=== PATIENT | female | born 1950 | race Hispanic/Latino ===

== ENCOUNTER 2023-01-21 06:16 | Observation (INO) | payer OTHER, MEDICARE ==
[2023-01-16 15:53] LABS: BASOPHILS # (AUTO) 0.07 K/uL (0.00-0.20); EOSINOPHILS # (AUTO) 0.16 K/uL (0.00-0.70); EOSINOPHILS % (AUTO) 2.3 % (0.0-8.0); HEMATOCRIT 32.6 % (36-48); IMMATURE GRANULOCYTE ABSOLUTE 0.03 K/uL (0-1); LYMPHOCYTES % (AUTO) 28.7 % (21.0-51.0); MEAN CORPUSCULAR HEMOGLOBIN 29.8 pg (27.0-33.0); MEAN CORPUSCULAR HGB CONC 33.1 g/dL (32.0-36.0); MEAN CORPUSCULAR VOLUME 90.1 fL (79-99); MONOCYTES # (AUTO) 0.6 K/uL (0.1-1.0); MONOCYTES % (AUTO) 7.7 % (3.0-13.0); NEUTROPHILS # (AUTO) 4.3 K/uL (1.8-7.7); NEUTROPHILS % (AUTO) 59.9 % (40.0-77.0); PLATELET COUNT (AUTO) 176 K/uL (130-400); RED BLOOD CELL COUNT(AUTO) 3.62 MIL/uL (4.00-5.50); RED CELL DISTRIBUTION WIDTH 12.2 % (11.0-15.5); WHITE BLOOD COUNT (AUTO) 7.1 K/uL (4.8-10.8)
[2023-01-16 15:58] LABS: APPEARANCE,URINE CLEAR (CLEAR); BILIRUBIN,URINE NEGATIVE (NEGATIVE); COLOR,URINE LIGHT-YELLOW (YELLOW); GLUCOSE, URINE (UA) >=1000 mg/dL (NEGATIVE); KETONES,URINE NEGATIVE (NEGATIVE); LEUKOCYTE ESTERASE ,URINE NEGATIVE Leu/uL (NEGATIVE); NITRATE,URINE NEGATIVE (NEGATIVE); PROTEIN,URINE NEGATIVE (NEGATIVE); UROBILINOGEN,URINE 0.2 mg/dL (0.2-1.0)
[2023-01-16 16:02] LABS: ADD UA MICROSCOPIC YES
[2023-01-16 16:04] LABS: MUCUS,URINE RARE LPF (None Seen); SQUAMOUS EPITHELIAL CELL,UR RARE /HPF (0-2); WBC,URINE 0-1 /HPF (0-1)
[2023-01-16 16:11] LABS: INR < 0.93 (0.85-1.15); PROTHROMBIN TIME 10.7 SEC (9.6-11.6)
[2023-01-16 16:12] LABS: ALBUMIN 3.6 g/dL (3.5-5.0); BILIRUBIN,TOTAL 0.3 mg/dL (0.2-1.0); CREATININE 0.7 mg/dL (0.5-1.5); POTASSIUM 4.4 mmol/L (3.5-5.1); TOTAL PROTEIN, SERUM 7.8 g/dL (6.0-8.3)
[2023-01-16 16:13] LABS: PARTIAL THROMBOPLASTIN TIME 23.9 SEC (26.3-35.5)
[2023-01-16 16:38] VITALS: BP 141/71; PULSE 87; RESP 16
[2023-01-21] VITALS (21 sets, daily range): BP systolic 107–166; BP diastolic 43–79; PULSE 89–111; RESP 15–21; O2SAT 100
[~2023-01-21] VITALS: Ht 149.9 cm; Wt 48.7 kg
[~2023-01-21 06:16] MED LIST: ALEN70TA80 PO; CALC-1009 PO; FERR-82 PO; GLYB5TAB8 PO; LISI2.5T13 PO; MELA1TAB16 PO; MELO-106 PO; OMEP40CA21 PO; ROSU5TAB12 PO
[2023-01-21] MEDS ORDERED: CEFAZOLIN SODIUM 1 GM VIAL ONE ×4 (07:17→11:14)
[2023-01-21] MEDS ORDERED: BUPIVACAINE/PF 0.5% 30ML VIAL ONE (07:17)
[2023-01-21] MEDS ORDERED: KETOROLAC 30MG VIAL (30MG/ML) ONE (07:18)
[2023-01-21] MEDS ORDERED: GENTAMICIN SULFATE 80 MG/2 ML VIAL ONE ×3 (07:18→11:16)
[2023-01-21] MEDS ORDERED: LIDOCAINE 1%-EPI 1:100,000 20 ML VIAL ONE (07:18)
[2023-01-21] MEDS ORDERED: METHYLENE BLUE 5 MG/ML AMP ONE (07:18)
[2023-01-21] MEDS ORDERED: HYDROMORPHONE 1 MG INJ ONE (07:21)
[2023-01-21] MEDS ORDERED: FAMOTIDINE 20MG VIAL IV ONE (07:21)
[2023-01-21] MEDS ORDERED: FENTANYL CITRATE PF 50 MCG/1 ML 2ML VIAL ONE ×2 (07:26→09:33)
[2023-01-21] MEDS ORDERED: GLYCOPYRROLATE 1 MG/5 ML SYRINGE ONE (07:26)
[2023-01-21] MEDS ORDERED: SUCCINYLCHOLINE CHLORIDE 20 MG/ML 10 ML VIAL ONE (07:26)
[2023-01-21] MEDS ORDERED: ROCURONIUM 10MG/1ML SYR 10 MG/ML ML ONE (07:26)
[2023-01-21] MEDS ORDERED: PROPOFOL 10 MG/ML 20ML VIAL IV ONE (07:26)
[2023-01-21] MEDS ORDERED: LIDOCAINE PF 100MG/5ML (2%) SYRINGE 5ML ONE (07:26)
[2023-01-21] MEDS ORDERED: CEFAZOLIN SODIUM 2 GM VIAL ONE (07:52)
[2023-01-21] MEDS ORDERED: 0.9%NACL 1000ML 1,000 ML IV ONE (07:52)
[2023-01-21] MEDS ORDERED: SCOPOLAMINE HYDROBROMIDE 1 EACH ADH..PATCH TD ONE (08:04)
[2023-01-21] MEDS ORDERED: MIDAZOLAM HCL 1 MG/ML 2ML VIAL ONE (08:26)
[2023-01-21] MEDS ORDERED: TRULICITY SQ (08:27)
[2023-01-21] MEDS ORDERED: GENTAMICIN SULFATE 80 MG/2 ML VIAL IM ONE (08:33)
[2023-01-21] MEDS ORDERED: CEFAZOLIN SODIUM 2 GM VIAL IVPB ONE (08:36)
[2023-01-21] MEDS ORDERED: METHYLENE BLUE 5 MG/ML AMP IJ ONE (08:40)
[2023-01-21] MEDS ORDERED: ONDANSETRON 4MG INJ ONE (08:59)
[2023-01-21] MEDS ORDERED: POLYMYXIN B SULFATE IRRIG SCH (09:30)
[2023-01-21] MEDS ORDERED: NACL 0.9% IRRIG SCH (09:30)
[2023-01-21] MEDS ORDERED: EPHEDRINE SULFATE 50 MG/ML AMPULE ONE (10:15)
[2023-01-21] MEDS ORDERED: DiphenhydrAMINE HCL 50 MG/ML VIAL ONE (12:22)
[2023-01-21] MEDS ORDERED: MEPERIDINE-PF 25 MG/ML SYG ONE (13:01)
[2023-01-21] MEDS: IBUPROFEN 800 MG TAB PO SCH ×2 (13:30→20:55)
[2023-01-21] MEDS ORDERED: ONDANSETRON 4MG INJ IVP PRN (13:30)
[2023-01-21] MEDS: TRAMADOL HCL 50 MG TABLET PO SCH ×3 (13:30→19:30)
[2023-01-21] MEDS: D5W-1/2 NS/20MEQ KCL 1,000 ML IV SCH (16:13)
[2023-01-21] MEDS ORDERED: (Melatonin/Pyridoxine (Melatonin 5 mg Tablet) 1 EACH) PO PRN (22:30)
[2023-01-21] MEDS ORDERED: (Alendronate Sodium 70 MG) PO SCH (22:30)
[2023-01-22] VITALS (7 sets, daily range): BP systolic 104–155; BP diastolic 51–97; PULSE 85–95; RESP 16–17; O2SAT 95–97
[2023-01-22] MEDS: TRAMADOL HCL 50 MG TABLET PO SCH ×4 (01:07→18:51)
[2023-01-22] MEDS: D5W-1/2 NS/20MEQ KCL 1,000 ML IV SCH ×4 (02:02→18:51)
[2023-01-22] MEDS: IBUPROFEN 800 MG TAB PO SCH ×3 (04:53→20:56)
[2023-01-22 05:40] LABS: BASOPHILS # (AUTO) 0.05 K/uL (0.00-0.20); BASOPHILS % (AUTO) 0.5 % (0.0-5.0); EOSINOPHILS # (AUTO) 0.08 K/uL (0.00-0.70); EOSINOPHILS % (AUTO) 0.9 % (0.0-8.0); IMMATURE GRANULOCYTE ABSOLUTE 0.05 K/uL (0-1); LYMPHOCYTES # (AUTO) 1.9 K/uL (1.0-4.8); LYMPHOCYTES % (AUTO) 20.4 % (21.0-51.0); MEAN CORPUSCULAR HEMOGLOBIN 29.9 pg (27.0-33.0); MEAN CORPUSCULAR HGB CONC 32.6 g/dL (32.0-36.0); MEAN CORPUSCULAR VOLUME 91.8 fL (79-99); MONOCYTES # (AUTO) 0.8 K/uL (0.1-1.0); NEUTROPHILS # (AUTO) 6.5 K/uL (1.8-7.7); NEUTROPHILS % (AUTO) 69.7 % (40.0-77.0); PLATELET COUNT (AUTO) 145 K/uL (130-400); RED BLOOD CELL COUNT(AUTO) 2.94 MIL/uL (4.00-5.50); RED CELL DISTRIBUTION WIDTH 12.7 % (11.0-15.5); WHITE BLOOD COUNT (AUTO) 9.4 K/uL (4.8-10.8)
[2023-01-22 05:49] LABS: CREATININE 0.7 mg/dL (0.5-1.5); POTASSIUM 3.8 mmol/L (3.5-5.1)
[2023-01-22] MEDS ORDERED: NON-FORMULARY MEDICATION 1 EACH (Ferrous Sulfate (Iron) 325 MG) PO SCH (09:00)
[2023-01-22] MEDS: (Calcium Carb & Cit/Vitamin D3 (Calcium + D3 ER Tablet) PO SCH (09:00)
[2023-01-22] MEDS ORDERED: MELOXICAM 7.5 MG TABLET PO SCH (09:00)
[2023-01-22] MEDS ORDERED: NON-FORMULARY MEDICATION 1 EACH (Omeprazole 40 MG) PO SCH (09:00)
[2023-01-22] MEDS: FERROUS SULFATE 325 MG TABLET.DR PO SCH (09:34)
[2023-01-22] MEDS: LISINOPRIL 2.5 MG TABLET PO SCH (09:34)
[2023-01-22] MEDS: PANTOPRAZOLE 40 MG TAB DR PO SCH (09:34)
[2023-01-22] MEDS: GLYBURIDE 5 MG TABLET PO SCH ×2 (09:35→13:18)
[2023-01-22] MEDS: ATORVASTATIN 10 MG TABLET PO SCH (20:56)
[2023-01-22] MEDS ORDERED: NON-FORMULARY MEDICATION 1 EACH (Rosuvastatin Calcium 5 MG) PO SCH (21:00)
[2023-01-22] MEDS: MORPHINE 4 MG SYG IV PRN (23:41)
[2023-01-23] VITALS (8 sets, daily range): BP systolic 142–182; BP diastolic 63–86; PULSE 80–96; RESP 16–18; O2SAT 96–97
[2023-01-23] MEDS: TRAMADOL HCL 50 MG TABLET PO SCH ×4 (00:52→19:07)
[2023-01-23] MEDS: IBUPROFEN 800 MG TAB PO SCH ×3 (03:54→22:07)
[2023-01-23] MEDS: D5W-1/2 NS/20MEQ KCL 1,000 ML IV SCH ×2 (06:05→18:50)
[2023-01-23 06:21] LABS: BASOPHILS # (AUTO) 0.05 K/uL (0.00-0.20); BASOPHILS % (AUTO) 0.7 % (0.0-5.0); EOSINOPHILS # (AUTO) 0.21 K/uL (0.00-0.70); EOSINOPHILS % (AUTO) 2.9 % (0.0-8.0); IMMATURE GRANULOCYTE ABSOLUTE 0.05 K/uL (0-1); LYMPHOCYTES # (AUTO) 2.1 K/uL (1.0-4.8); LYMPHOCYTES % (AUTO) 29.6 % (21.0-51.0); MEAN CORPUSCULAR HEMOGLOBIN 29.8 pg (27.0-33.0); MEAN CORPUSCULAR HGB CONC 31.5 g/dL (32.0-36.0); MEAN CORPUSCULAR VOLUME 94.7 fL (79-99); MONOCYTES # (AUTO) 0.7 K/uL (0.1-1.0); MONOCYTES % (AUTO) 9.5 % (3.0-13.0); NEUTROPHILS % (AUTO) 56.6 % (40.0-77.0); PLATELET COUNT (AUTO) 122 K/uL (130-400); RED BLOOD CELL COUNT(AUTO) 2.85 MIL/uL (4.00-5.50); RED CELL DISTRIBUTION WIDTH 12.9 % (11.0-15.5); WHITE BLOOD COUNT (AUTO) 7.1 K/uL (4.8-10.8)
[2023-01-23 06:41] LABS: CREATININE 0.7 mg/dL (0.5-1.5); POTASSIUM 4.8 mmol/L (3.5-5.1)
[2023-01-23] MEDS ORDERED: (Alendronate Sodium 70 MG) PO SCH (07:00)
[2023-01-23] MEDS: (Calcium Carb & Cit/Vitamin D3 (Calcium + D3 ER Tablet) PO SCH (08:53)
[2023-01-23] MEDS: LISINOPRIL 2.5 MG TABLET PO SCH (08:54)
[2023-01-23] MEDS: GLYBURIDE 5 MG TABLET PO SCH ×3 (08:54→19:08)
[2023-01-23] MEDS: FERROUS SULFATE 325 MG TABLET.DR PO SCH (08:56)
[2023-01-23] MEDS: PANTOPRAZOLE 40 MG TAB DR PO SCH (08:56)
[2023-01-23] MEDS: ATORVASTATIN 10 MG TABLET PO SCH (20:36)
[2023-01-24 00:07] VITALS: BP 105/50; PULSE 93; RESP 18
[2023-01-24] MEDS: TRAMADOL HCL 50 MG TABLET PO SCH ×3 (01:36→13:10)
[2023-01-24] MEDS: D5W-1/2 NS/20MEQ KCL 1,000 ML IV SCH (01:36)
[2023-01-24 04:49] VITALS: BP 150/91; PULSE 90; RESP 19
[2023-01-24] MEDS: IBUPROFEN 800 MG TAB PO SCH ×2 (05:30→13:10)
[2023-01-24] MEDS: MORPHINE 4 MG SYG IV PRN (05:33)
[2023-01-24 06:17] LABS: BASOPHILS # (AUTO) 0.04 K/uL (0.00-0.20); BASOPHILS % (AUTO) 0.5 % (0.0-5.0); EOSINOPHILS # (AUTO) 0.26 K/uL (0.00-0.70); EOSINOPHILS % (AUTO) 3.3 % (0.0-8.0); HEMATOCRIT 27.6 % (36-48); IMMATURE GRANULOCYTE ABSOLUTE 0.04 K/uL (0-1); LYMPHOCYTES # (AUTO) 1.8 K/uL (1.0-4.8); LYMPHOCYTES % (AUTO) 22.5 % (21.0-51.0); MEAN CORPUSCULAR HEMOGLOBIN 29.9 pg (27.0-33.0); MEAN CORPUSCULAR HGB CONC 33.3 g/dL (32.0-36.0); MEAN CORPUSCULAR VOLUME 89.6 fL (79-99); MONOCYTES # (AUTO) 0.6 K/uL (0.1-1.0); NEUTROPHILS # (AUTO) 5.1 K/uL (1.8-7.7); NEUTROPHILS % (AUTO) 65.2 % (40.0-77.0); PLATELET COUNT (AUTO) 151 K/uL (130-400); RED BLOOD CELL COUNT(AUTO) 3.08 MIL/uL (4.00-5.50); RED CELL DISTRIBUTION WIDTH 12.7 % (11.0-15.5); WHITE BLOOD COUNT (AUTO) 7.9 K/uL (4.8-10.8)
[2023-01-24 06:27] LABS: CREATININE 0.5 mg/dL (0.5-1.5); POTASSIUM 3.8 mmol/L (3.5-5.1)
[2023-01-24 08:15] VITALS: O2SAT 95
[2023-01-24 08:27] VITALS: BP 147/57; PULSE 79; RESP 17
[2023-01-24] MEDS: PANTOPRAZOLE 40 MG TAB DR PO SCH (08:43)
[2023-01-24] MEDS: FERROUS SULFATE 325 MG TABLET.DR PO SCH (08:43)
[2023-01-24] MEDS: LISINOPRIL 2.5 MG TABLET PO SCH (08:43)
[2023-01-24] MEDS: (Calcium Carb & Cit/Vitamin D3 (Calcium + D3 ER Tablet) PO SCH (08:43)
[2023-01-24] MEDS: GLYBURIDE 5 MG TABLET PO SCH ×2 (08:43→11:42)
[2023-01-24 12:23] VITALS: BP 159/64; PULSE 85; RESP 17
== END 2023-01-24 16:30 | disposition home or self-care (01) ==
LOC: DAH 06:16 → DAHIP 06:17 → DAH 06:17 → WSH 14:00 → 3BH 20:23
PROVIDERS: ADMIT Student in an Organized Health Care Education/Training Program; ATTEND Student in an Organized Health Care Education/Training Program
DX: C50.911 Malignant neoplasm of unspecified site of right female breast (principal); C50.912 Malignant neoplasm of unspecified site of left female breast; N63.10 Unspecified lump in the right breast, unspecified quadrant; L90.5 Scar conditions and fibrosis of skin; I10 Essential (primary) hypertension; E11.9 Type 2 diabetes mellitus without complications; E78.00 Pure hypercholesterolemia, unspecified; R10.2 Pelvic and perineal pain; Z90.49 Acquired absence of other specified parts of digestive tract; Z79.82 Long term (current) use of aspirin; Z90.13 Acquired absence of bilateral breasts and nipples; Z79.899 Other long term (current) drug therapy
CPT/HCPCS: 80053; 85025 ×4; 85610; 85730; 81001; 36415 ×4; 93005; 78195; 19303; 38525; 96374; 82948 ×12; 88307; 96375; 80048 ×3; 96376; A6260; A9541; G0378 ×74; A4663; J7120; A4344; J7040; J1200; J3490 ×5; J3010 ×2; J0690 ×6; J1170; J0330; J7030; J2001; J1580 ×4; J2250; J2704; J2405 ×2; J3480 ×3; J1885; J2175; A4649 ×2; A9272; C1713; A4215; A4223; A4222; A4221; A4600; J2270 ×2; L0625; Q9968; J0665